=== PATIENT | male | born 1980 | race Caucasian/White ===

== ENCOUNTER 2022-01-21 02:42 | Emergency (ER) | payer OTHER ==
[~2022-01-21 02:42] MED LIST changes: -ATIVAN0.5 MG PO
[2022-01-21 03:37] LABS: HEMOGLOBIN 13.5 gm/dl (14.0-17.5); RED BLOOD COUNT 4.71 M/UL (4.20-5.50); WHITE BLOOD COUNT 9.3 K/UL (4.5-11.0)
[2022-01-21 04:01] LABS: BUN/CREATININE RATIO 14 (0-10)
[2022-01-21] MEDS ORDERED: ATIVAN0.5 MG PO ×2 (05:22→05:33)
== END 2022-01-21 05:37 | disposition home or self-care (01) ==
LOC: ER1 02:42
PROVIDERS: Family Medicine
DX: F41.9 Anxiety disorder, unspecified (principal)
CPT/HCPCS: 71046; 80053; 82550; 82553; 84484; 85025; 93005; 99285

== ENCOUNTER → 2022-01-21 | Outpatient (CLI) | payer OTHER ==
[~2022-01-21] MED LIST: ATIVAN0.5 MG PO; IBUPROFEN800 MG PO
[2022-01-21 12:11] LABS: RED BLOOD COUNT 4.89 M/UL (4.20-5.50); WHITE BLOOD COUNT 9.7 K/UL (4.5-11.0)
== END ==
LOC: LAB 09:04
PROVIDERS: Internal Medicine Hematology & Oncology
DX: E80.29 Other porphyria (principal)
CPT/HCPCS: 36415; 83520; 84120; 85025